=== PATIENT | male | born 1960 | race Caucasian/White ===

== ENCOUNTER 2022-02-04 08:51 | Day surgery (SDC) | payer OTHER ==
[2022-01-31 08:52] VITALS: BMI 31.0
[~2022-02-04 08:51] MED LIST: LACTATED RINGERS 1,000 ML IV SCH; LIDOCAINE 1% (10MG/ML) FOR IV START INTRADERMA PRN
[2022-02-04 09:14] VITALS: TEMP 98.7
[2022-02-04] MEDS ORDERED: PROPOFOL 10 MG/ML 20 ML VIAL IV ONE (10:10)
--- NOTE | 2022-02-04 10:17 | P.GSHP ---
History of Present Illness H&P Date: 02/04/22 Chief Complaint: Rectal bleeding 61-year-old male known to our service. Patient underwent right colectomy 7 years ago for right-sided polyp with high-grade dysplasia. Recently patient has noticed some bright red blood per rectum. No constipation. He did not have a follow-up colonoscopy after his right colectomy. Past Medical History Past Medical History: Hypertension Additional Past Medical History / Comment(s): bleeding in stool weeks ago,freq loose stools, hx bowel tumor History of Any Multi-Drug Resistant Organisms: None Reported Past Surgical History: Bowel Resection, Hernia Repair Additional Past Surgical History / Comment(s): hiatal hernia, inguinal hernia repair, arthroscopy left knee Past Anesthesia/Blood Transfusion Reactions: No Reported Reaction Smoking Status: Never smoker - Past Family History Mother Family Medical History: Cancer Additional Family Medical History / Comment(s): lung CA Father Additional Family Medical History / Comment(s): "something wrong with his stomach" Medications and Allergies Home Medications Medication Instructions Recorded Confirmed Type Aspirin 81 mg PO DAILY 01/31/22 02/04/22 History Bisoprolol-Hctz 5-6.25 mg [Ziac 1 tab PO DAILY 02/04/22 02/04/22 History 5-6.25 MG] Allergies Allergy/AdvReac Type Severity Reaction Status Date / Time No Known Allergies Allergy Verified 02/04/22 09:08 Surgical - Exam Vital Signs Temp Pulse Resp BP Pulse Ox 98.7 F 76 18 187/92 97 02/04/22 09:12 02/04/22 09:12 02/04/22 09:12 02/04/22 09:12 02/04/22 09:12 Physical exam: General: Well-developed, well-nourished HEENT: Normocephalic, sclerae nonicteric Abdomen: Nontender, nondistended Extremities: No edema Neuro: Alert and oriented Assessment and Plan (1) Rectal bleeding Narrative/Plan: Will proceed with colonoscopy at this time Current Visit: Yes Status: Acute Code(s): K62.5 - HEMORRHAGE OF ANUS AND RECTUM SNOMED Code(s): 02286580
--- NOTE | 2022-02-04 10:33 | P.PCN ---
Date of Procedure: 02/04/22 Procedure(s) Performed: PREOPERATIVE DIAGNOSIS: Rectal bleeding, history of polyps POSTOPERATIVE DIAGNOSIS: Descending colon polyp, sigmoid colon polyp, diverticulosis PROCEDURE: Colonoscopy with snare polypectomy ANESTHESIA: MAC SURGEON: Matteo Menjivar M.D. SPECIMENS: Polyps ENDOSCOPIC PROCEDURE: The patient was placed on the endoscopy table in the left decubitus position. The Olympus colonoscope was inserted into the anus and passed under direct visualization to the ileocolonic anastomosis. The scope was slowly withdrawn. A small polyp in the descending colon was seen and removed using the snare with cautery technique. Another small polyp was seen in the sigmoid colon and removed in a similar fashion. The remainder of the sigmoid and rectum was normal. The patient had extensive left-sided diverticulosis. Digital rectal examination was normal. The patient was taken to the recovery room in stable condition per anesthesia guidelines. RECOMMENDATIONS: Await biopsy results. Repeat colonoscopy 5 years.
[2022-02-04 11:03] VITALS: RESP 16
[2022-02-04 11:06] VITALS: BP 160/81; PULSE 68
== END 2022-02-04 11:29 | disposition home or self-care (01) ==
LOC: ORWHC2ENDO 08:51
PROVIDERS: ATTEND Surgery
DX: K57.30 Diverticulosis of large intestine without perforation or abscess without bleeding (principal); D12.5 Benign neoplasm of sigmoid colon; I10 Essential (primary) hypertension; Z79.82 Long term (current) use of aspirin; Z80.1 Family history of malignant neoplasm of trachea, bronchus and lung
CPT/HCPCS: 45385; 88305; J2704

== ENCOUNTER → 2022-12-23 | Outpatient (CLI) | payer OTHER ==
--- NOTE | 2022-12-23 14:08 | CT ---
EXAMINATION TYPE: CT cervical spine wo con DATE OF EXAM: 12/23/2022 COMPARISON: None HISTORY: Neck stiffness, limited range of motion, and bilateral hand numbness x1 year. CT DLP: 711.5 mGycm CONTRAST: None CT of the cervical spine is performed in the axial plane at 2 mm thick sections. Reconstructed image s in the coronal, and sagittal plane are reviewed on the computer. No acute fractures are evident. Vertebral body alignment is normal. Prevertebral space is normal. No suspicious focal disc herniation or significant disc bulge is evident. There is some mild endplate changes with anterior thecal sac c ontact. Small central spurs present at C6 without significant thecal sac compression. Mild diffuse disc space narrowing is through the cervical spine. Vertebral body heights are preserved. No spinal canal stenosis is evident Uncovertebral joint hypertrophy and facet hypertrophy is present C3-4 with moderate bilateral foramin al stenosis. Mild right foraminal stenosis is present C4-5 from uncovertebral joint hypertrophy and f acet hypertrophy. Mild left foraminal narrowing is present at C5-6 from uncovertebral joint hypertrop hy. Moderate foraminal narrowing is present bilaterally at C6-7 from uncovertebral joint hypertrophy. IMPRESSIONS: 1. Mild to moderate foraminal narrowing due to uncovertebral joint atrophy through the cervical spi ne discussed above.
== END | disposition home or self-care (01) ==
LOC: RADCTMAIN 06:40
PROVIDERS: ATTEND Family Medicine
DX: M47.812 Spondylosis without myelopathy or radiculopathy, cervical region (principal); M99.71 Connective tissue and disc stenosis of intervertebral foramina of cervical region
CPT/HCPCS: 72125

== ENCOUNTER 2023-02-16 10:35 | Emergency (ER) | payer OTHER ==
[2023-02-16 10:39] VITALS: TEMP 98.1
[2023-02-16] MEDS ORDERED: KETOROLAC 15 MG/ML 1 ML VIAL IVP STA (11:56)
[2023-02-16] MEDS ORDERED: KETOROLAC 15 MG/ML 1 ML VIAL IM STA (12:00)
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
--- NOTE | 2023-02-16 12:19 | XR ---
EXAMINATION TYPE: XR chest 2V DATE OF EXAM: 02/16/2023 COMPARISON: NONE TECHNIQUE: PA and lateral views submitted. HISTORY: Rt side rib pain FINDINGS: The lungs are clear and there is no pneumothorax, pleural effusion, or focal pneumonia. Heart size normal and no overt failure. Osseous structures demonstrate hypertrophic and degenerative changes of the spine. Subsegmental consolidation left lower lobe. IMPRESSION: 1. No acute process. Subsegmental consolidation left lower consistent with atelectasis.
[2023-02-16] MEDS ORDERED: IBUPROFEN 600 MG STARTER PACK 4 TAB BTL PO STA (13:00)
[2023-02-16 13:17] VITALS: BP 152/78; PULSE 76; RESP 14
== END 2023-02-16 13:27 | disposition home or self-care (01) ==
LOC: EC 10:35
DX: S20.20XA Contusion of thorax, unspecified, initial encounter (principal); S09.90XA Unspecified injury of head, initial encounter; I10 Essential (primary) hypertension; F12.90 Cannabis use, unspecified, uncomplicated; Z79.82 Long term (current) use of aspirin; V29.99XA Rider (driver) (passenger) of other motorcycle injured in unspecified traffic accident, initial encounter; Y92.410 Unspecified street and highway as the place of occurrence of the external cause
CPT/HCPCS: 71046; 99284; 96372; J1885